=== PATIENT | male | born 1975 | race Caucasian/White ===

== ENCOUNTER 2018-11-27 18:31 | Emergency (ER) | payer SELFPAY ==
[~2018-11-27] VITALS: Ht 172.7 cm; Wt 74.1 kg
[~2018-11-27 18:31] MED LIST: ASPI81 PO; ATOR40TA28 PO; METF-960 PO; NPH,100V SQ
[2018-11-27] MEDS ORDERED: INSU100I24 SQ (18:35)
[2018-11-27 20:12] VITALS: BP 131/89
[2018-11-27] MEDS ORDERED: BACITRACIN 0.9 GM PACKET OINTMENT TP ONE (20:15)
== END 2018-11-27 20:29 | disposition home or self-care (01) ==
LOC: EMS 18:32
DX: L03.115 Cellulitis of right lower limb (principal); E11.9 Type 2 diabetes mellitus without complications; E78.00 Pure hypercholesterolemia, unspecified; Z79.4 Long term (current) use of insulin; Z79.82 Long term (current) use of aspirin; Z79.899 Other long term (current) drug therapy